=== PATIENT | female | born 1995 | race African-American/Black ===

== ENCOUNTER 2017-02-06 14:18 | Emergency (ER) | payer SELFPAY ==
[~2017-02-06] VITALS: Ht 170.2 cm; Wt 70.0 kg
[~2017-02-06 14:18] MED LIST: NAPR500 PO
[2017-02-06 14:20] VITALS: BP 121/85; PULSE 81; RESP 22; TEMP 97.8; O2SAT 100
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
[2017-02-06] MEDS ORDERED: AUGM875T3 PO (15:36)
== END 2017-02-06 15:52 | disposition home or self-care (01) ==
LOC: NEPC 14:18
DX: S61.451A Open bite of right hand, initial encounter (principal); Y04.1XXA Assault by human bite, initial encounter; D64.9 Anemia, unspecified; I45.10 Unspecified right bundle-branch block
CPT/HCPCS: 99283

== ENCOUNTER 2017-10-16 19:07 | Emergency (ER) | payer SELFPAY ==
[~2017-10-16] VITALS: Ht 170.2 cm; Wt 70.0 kg
[~2017-10-16 19:07] MED LIST changes: +AUGM875T3 PO; -NAPR500 PO
[2017-10-16 19:18] VITALS: BP 101/52; PULSE 64; RESP 18; TEMP 98.6; O2SAT 100
--- NOTE | 2017-10-16 20:14 | RADRPT ---
EXAM DATE: 10/16/2017 8:02 PM EDT AGE/SEX: 22 years / Female INDICATIONS: Pain in right medial wrist and distal ulna. No known injury. CLINICAL DATA: This is the patient's initial encounter. Patient reports that signs and symptoms have been present for 3 days and indicates a pain score of 8/10. MEDICAL/SURGICAL HISTORY: None. None. COMPARISON: No prior [facility] exams available for comparison. FINDINGS: Bony structures are intact and in normal alignment. Joints are intact without dislocation or signifi cant arthropathy. Osseous density is normal. Soft tissues are unremarkable. No radiopaque foreign bodies seen. CONCLUSION: Negative examination Electronically signed by: Jeremias Langford MD 10/16/2017 8:12 PM EDT
--- NOTE | 2017-10-16 20:54 | PD ---
HPI Chief Complaint: Injury Time Seen by Provider: 20:45 Travel History International Travel<30 days: No Contact w/Intl Traveler<30days: No Traveled to known affect area: No History of Present Illness HPI Patient is a 22-year-old female here with her boyfriend for evaluation of right wrist pain for about 3 days. Patient states she has pain mainly at the ulnar aspect. She describes pain as sharp. It is worse with certain movements of the wrist. It is mild to moderate. Rest makes it better. There has been no swelling or discoloration of the wrist. Patient denies any trauma. She does do a lot of computer work at work, both keyboard and via mouse. She has no numbness or tingling in the fingers. She has no prior history of same. She is concerned she may have carpal tunnel syndrome. She has not been sick otherwise. There has been no fever, cough, congestion, vomiting, diarrhea, rashes, eye redness or drainage, change in appetite, urinary problems. PCP is in [place]. Patient is a student here locally. She is going home for the summer. History Past Medical History Anemia: Yes Cardiovascular Problems: Yes (RBBB) Immunizations Current: Yes Influenza Vaccination: No ?: Not LMP: Implant Past Surgical History Gynecologic Surgery: Yes ( control implant) Social History Attends: School Tobacco Use in Home: No Alcohol Use: Yes (occasionally) Tobacco Use: No Substance Use: No Allergies-Medications (Allergen,Severity, Reaction): Coded Allergies: No Known Allergies (Unverified Adverse Reaction, Unknown, 10/16/17) Reported Meds & Prescriptions Reported Meds & Active Scripts Active Augmentin (Amoxicillin-Clavulanate) 875-125 Mg Tab 1 Tab PO BID 7 Days ROS Except as stated in HPI: all other systems reviewed are Neg Physical Exam Narrative GENERAL APPEARANCE: The patient is a well-developed, well-nourished child in no acute distress. She is pink, alert and speaking clearly. SKIN: Skin is warm and dry without rashes. There is good turgor. HEENT: Mucous membranes are moist. No nasal congestion. Pupils are equal and round. NECK: Full range of motion without discomfort. LUNGS: Good air entry bilaterally with equal breath sounds without wheezes, rales or rhonchi. CHEST: The chest wall is without retractions or use of accessory muscles. HEART: Regular rate and rhythm without murmur. EXTREMITIES: Right wrist is without swelling, deformity or discoloration. Full range of motion of the right wrist is present without discomfort. Tenderness is present at the distal ulna. Right radial pulse is 2+. Full range of motion of the right hand is present with intact sensation and less than 2 second capillary is present in all fingers. Phalen's test is negative. Full range of motion of all other extremities is present. No cyanosis. NEUROLOGIC: Awake, alert, appropriate. No focal deficits. Data Data Last Documented VS Vital Signs Date Time Temp Pulse Resp B/P (MAP) Pulse Ox O2 Delivery O2 Flow Rate FiO2 10/16/17 19:18 98.6 64 18 101/52 (68) 100 Orders Orders Ice/Cold Pack (10/16/17 19:23) Wrist, Complete ([id number]) (10/16/17 19:23) Splint Or Brace Apply/Monitor (10/16/17 20:54) Ed Discharge Order (10/16/17 20:54) [facility] Medical Decision Making Medical Screen Exam Complete: Yes Emergency Medical Condition: Yes Medical Record Reviewed: Yes Interpretation(s) Last Impressions Wrist X-Ray 10/16/171922 Signed Impressions: CONCLUSION: Negative examination Differential Diagnosis Right wrist strain, fracture, contusion Narrative Course 22-year-old female with clinical presentation most consistent with right wrist strain. X-rays are negative for acute bony injury. There is no neurovascular compromise. Phalen's test is negative. I discussed diagnosis, expected course and treatment plan with patient who feels comfortable. I discussed signs of worsening and reasons to return to ER. Diagnosis Primary Impression: Strain of wrist, right Qualified Codes: S66.911A - Strain of unspecified muscle, fascia and tendon at wrist and hand level, right hand, initial encounter Referrals: Primary Care Physician upon return home Patient Instructions: General Instructions, Musculoskeletal Pain (ED) Departure Forms: Tests/Procedures Additional Instructions: Murray wrap or over the counter Velcro wrist splint as needed for comfort. Motrin/Tylenol for pain. Elevate right wrist at rest. Ice pack 20 minutes on and 20 minutes off to wrist several times per day as needed for comfort for pain. Return to ER if worsening. Follow up with own doctor upon return home. Med/Other Pt SpecificInfo: Other Disposition: 01 DISCHARGE HOME Condition: Stable Primary Care Physician Kari Rabago MD October 16, 2017 20:54
== END 2017-10-16 21:07 | disposition home or self-care (01) ==
LOC: NEPA 19:07
DX: S66.911A Strain of unspecified muscle, fascia and tendon at wrist and hand level, right hand, initial encounter (principal); X58.XXXA Exposure to other specified factors, initial encounter
CPT/HCPCS: 73110; 99283